=== PATIENT | male | born 1955 | race Caucasian/White ===

== ENCOUNTER 2021-03-23 04:50 | Day surgery (SDC) | payer OTHER ==
[2021-03-18 16:50] VITALS: BMI 44.7
[2021-03-23] MEDS ORDERED: KETAMINE HCL 200 MG/20 ML VIAL ONE (07:00)
[2021-03-23 08:45] VITALS: TEMP 97.1
[2021-03-23 09:29] VITALS: BP 115/63; PULSE 62
== END 2021-03-23 09:29 | disposition home or self-care (01) ==
LOC: JASU-ENDO 04:50
PROVIDERS: ATTEND Internal Medicine Gastroenterology
PROC: 0DBL8ZX Excision of Transverse Colon, Via Natural or Artificial Opening Endoscopic, Diagnostic (ICD-10-PCS; principal; 2021-03-23 08:15)
DX: Z12.11 Encounter for screening for malignant neoplasm of colon (principal); D12.3 Benign neoplasm of transverse colon; K57.30 Diverticulosis of large intestine without perforation or abscess without bleeding; K64.8 Other hemorrhoids
CPT/HCPCS: 88305-TC

== ENCOUNTER 2021-07-22 16:18 | Emergency (ER) | payer OTHER ==
[2021-07-22 16:53] VITALS: TEMP 98.7; BMI 42.7
[2021-07-22] MEDS ORDERED: CASIRIVIMAB/IMDEVIMAB 10 ML in SODIUM CHLORIDE 100 ML IVPB ONE (17:10)
[2021-07-22 18:30] LABS: HEMATOCRIT 42.6 % (35.4-49); HEMOGLOBIN 14.7 GM/dL (11.7-16.9); MCH 32.1 pg (25.7-33.7); MCHC 34.5 g/dl (32.0-35.9); MEAN CELL VOLUME 92.9 fl (80-96); MEAN PLT VOLUME 7.1 fl (7.5-11.1); PLATELET COUNT 173 10^3/uL (134-434); RBC 4.59 M/mm3 (4.00-5.60); RDW 13.6 % (11.9-15.9); WHITE BLOOD COUNT 5.9 K/mm3 (4.0-10.0)
[2021-07-22 18:58] LABS: CALCIUM 9.4 mg/dL (8.5-10.1)
[2021-07-22 18:59] LABS: ALBUMIN 3.7 g/dl (3.4-5.0); BLOOD UREA NITROGEN 12.1 mg/dL (7-18)
[2021-07-22 19:02] LABS: CREATININE 0.8 mg/dL (0.55-1.3)
[2021-07-22 19:03] LABS: BILIRUBIN,TOTAL 0.5 mg/dL (0.2-1); TOT PROT 7.4 g/dl (6.4-8.2)
[2021-07-22 20:34] VITALS: BP 145/74; PULSE 83
== END 2021-07-22 20:34 | disposition home or self-care (01) ==
LOC: JER 16:18
DX: U07.1 COVID-19 (principal)
CPT/HCPCS: 36415; 80053; 85027; 99284-25; Q0240

== ENCOUNTER 2024-12-24 06:32 | Day surgery (SDC) | payer OTHER ==
[2024-12-12 16:01] VITALS: BMI 38.5
[2024-12-24 09:38] VITALS: RESP 18; TEMP 98
[2024-12-24 10:05] VITALS: BP 121/65; PULSE 68
== END 2024-12-24 10:15 | disposition home or self-care (01) ==
LOC: JASU-ENDO 06:32
PROVIDERS: ATTEND Internal Medicine Gastroenterology
PROC: 0DJD8ZZ Inspection of Lower Intestinal Tract, Via Natural or Artificial Opening Endoscopic (ICD-10-PCS; principal; 2024-12-24 08:45)
DX: Z12.11 Encounter for screening for malignant neoplasm of colon (principal); K57.30 Diverticulosis of large intestine without perforation or abscess without bleeding; K64.8 Other hemorrhoids; Z86.0100 Personal history of colon polyps, unspecified